=== PATIENT | female | born 1960 | race Caucasian/White ===

== ENCOUNTER → 2016-08-26 | Outpatient (CLI) | payer OTHER ==
--- NOTE | 2016-08-26 10:12 | DX ---
Left foot series 3 views 0752 hours. History: Followup 5th metatarsal fracture. Original injury on July 06, 2016. Findings: Comparison to August 05, 2016 and July 07, 2016. Transverse fractures once again noted base of the left 5th metatarsal with about 2 mm of displacement of the lateral margin. There is subtle increase in sclerosis along the margins of the fracture with possible subtle early bridging along the medial margin of the fracture as well as the plantar dorsal margin. This represents incomplete fusion at this point. No additional fractures are appreciated. No periosteal thickening is evident. Soft tissues are unremarkable. Impression: Fracture base of the left 5th metatarsal with incomplete healing across the fracture as d etailed above.
== END ==
LOC: BMCIMAGING 07:50
PROVIDERS: ATTEND Podiatrist Foot & Ankle Surgery
DX: S92.352G Displaced fracture of fifth metatarsal bone, left foot, subsequent encounter for fracture with delayed healing (principal)

== ENCOUNTER 2016-08-31 06:39 | Day surgery (SDC) | payer OTHER ==
[~2016-08-31 06:39] MED LIST: cefOXitin SODIUM 1 GM in D5W 50 ML IV ONE
[2016-08-31] MEDS ORDERED: LIDOCAINE 1% 5 ML SDV ONE (06:55)
[2016-08-31] MEDS ORDERED: BUPIVACAINE 0.5% 30 ML SDV ONE (07:06)
[2016-08-31] MEDS ORDERED: LR 1,000 ML IV ONE (07:52)
[2016-08-31] MEDS ORDERED: LIDOCAINE 1% 5 ML SDV ID PRN (07:52)
[2016-08-31] MEDS ORDERED: MIDAZOLAM 2 MG/2 ML VIAL ONE (08:06)
[2016-08-31] MEDS ORDERED: SCOPOLAMINE HYDROBROMIDE 1.5 MG PATCH TD ONE ×2 (08:23→09:00)
[2016-08-31] MEDS ORDERED: PROPOFOL/EMULSION 500 MG/50 ML BOTTLE IV ONE (08:40)
[2016-08-31] MEDS ORDERED: fentaNYL 250 MCG/5 ML INJ ONE (08:40)
[2016-08-31] MEDS ORDERED: SUGAMMADEX SODIUM 200 MG/2 ML VIAL IVP ONE (09:12)
[2016-08-31] MEDS ORDERED: ROCURONIUM 50 MG/5 ML VIAL ONE (09:12)
[2016-08-31] MEDS ORDERED: HYDROCODONE/APAP 5/325 TAB ONE (10:19)
--- NOTE | 2016-08-31 11:19 | GOP ---
[f rep st] OPERATIVE REPORT DATE OF OPERATION: 08/31/2016 SURGEON: Gianni Elder MD HELP DESK REP: Stephanie Vang, whose presence was requested by me and medically necessary for the safe and timely completion of this case. ANESTHESIA: General endotracheal anesthesia. ANESTHESIOLOGIST: Dr. Beasley. PREOPERATIVE DIAGNOSIS: Symptomatic cholelithiasis. POSTOPERATIVE DIAGNOSIS: Symptomatic cholelithiasis. PROCEDURE PERFORMED: Laparoscopic cholecystectomy. FINDINGS: The patient had mild inflammation of the gallbladder with cholelithiasis. ESTIMATED BLOOD LOSS: 20 cc. INDICATIONS: A 56-year-old female with a history of abdominal pain. The patient had a bedside ultra sound that had demonstrated cholelithiasis. Risks and benefits of the procedure were discussed with the patient and her family. Their questions were answered. They wished to proceed. DESCRIPTION OF PROCEDURE: The patient was in the supine position. After the induction of adequate g eneral endotracheal anesthesia, the patient was prepped and draped in the standard surgical fashion. The supraumbilical area was infiltrated with 0.5% Marcaine for local anesthesia. A 5-mm incision wa s made and the abdominal wall was elevated. A Veress needle was inserted and after noting proper pre ssures, the abdomen was insufflated with carbon dioxide. A 5-mm trocar was passed and the camera foll owed. There was no apparent damage with trocar placement. Three more ports were placed; two 5-mm po rts in the right subcostal area, and one 11-mm port in the subxiphoid area. These were all placed du ring direct vision after injecting 0.5% Marcaine for local anesthesia. The gallbladder was then grasped and elevated. Adhesions were taken down using blunt dissection and cautery. The cystic structures were carefully dissected in a similar fashion. The cystic duct and c ystic artery were clearly identified. In addition, the subhepatic space was dissected. Once this cri tical view was obtained, the cystic duct and cystic artery were clipped and transected with scissors. The gallbladder was then elevated off the liver bed using cautery and blunt dissection. It was wit hdrawn through the subxiphoid port. The abdomen was then inspected and good hemostasis was noted. The fascia at the 11-mm port site was closed using 0 Vicryl in an interrupted fashion. All trocars were removed under direct vision, and t he pneumoperitoneum was allowed to escape. The wounds were thoroughly irrigated and the skin was malorie sed with 5-0 Monocryl in a subcuticular stitch. Needle and sponge counts were correct. The wounds w ere sterilely dressed. The patient was extubated and taken to the post-anesthesia care unit in stabl e condition. COMPLICATIONS: None. DRAINS: None. /[id number]/MODL
== END 2016-08-31 11:17 | disposition home or self-care (01) ==
LOC: FSGY 06:39
PROVIDERS: ATTEND Surgery
PROC: 0FT44ZZ Resection of Gallbladder, Percutaneous Endoscopic Approach (ICD-10-PCS; principal; 2016-08-31 08:30)
DX: K80.20 Calculus of gallbladder without cholecystitis without obstruction (principal)
CPT/HCPCS: J0697; J2250; J2704; J3010

== ENCOUNTER → 2016-09-15 | Outpatient (CLI) | payer OTHER ==
--- NOTE | 2016-09-15 08:40 | DX ---
Left Foot , 3 weightbearing History: Follow-up fifth metatarsal fracture at 10 weeks post trauma, S 92.352A Findings: Alignment is stable. The margins of the proximal fifth metatarsal remain indistinct and the fracture line remains visible, measuring approximately 2 mm. There is early plantar periosteal new b one . Impression: Early healing is occurring. Stable alignment.
== END ==
LOC: CIMAGING 08:12
PROVIDERS: ATTEND Podiatrist Foot & Ankle Surgery
DX: S92.352D Displaced fracture of fifth metatarsal bone, left foot, subsequent encounter for fracture with routine healing (principal)
CPT/HCPCS: 73630-PO

== ENCOUNTER → 2016-10-05 | Outpatient (CLI) | payer OTHER | LOC: FIMAGING 08:46 | PROVIDERS: ATTEND Nurse Practitioner Adult Health | DX: Z13.820 Encounter for screening for osteoporosis (principal); Z78.0 Asymptomatic menopausal state; M85.80 Other specified disorders of bone density and structure, unspecified site ==

== ENCOUNTER → 2016-12-30 | Outpatient (CLI) | payer OTHER | LOC: BMCIMAGING 08:54 | PROVIDERS: ATTEND Podiatrist Foot & Ankle Surgery | DX: M79.672 Pain in left foot (principal) ==

== ENCOUNTER → 2017-03-15 | Outpatient (CLI) | payer OTHER | LOC: FIMAGING 16:10 | PROVIDERS: ATTEND Nurse Practitioner Adult Health | DX: Z12.31 Encounter for screening mammogram for malignant neoplasm of breast (principal); Z80.3 Family history of malignant neoplasm of breast | CPT/HCPCS: G0202 ==

== ENCOUNTER → 2018-04-08 | Outpatient (CLI) | payer OTHER | LOC: FIMAGING 07:28 | PROVIDERS: ATTEND Family Medicine | DX: Z12.31 Encounter for screening mammogram for malignant neoplasm of breast (principal); Z80.3 Family history of malignant neoplasm of breast ==